=== PATIENT | male | born 1975 ===

== ENCOUNTER 2017-12-04 20:26 | Inpatient (IN) | payer MEDICAID, OTHER ==
[2017-12-04 20:27] VITALS: BMI 24.3
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
[2017-12-04 21:43] LABS: BASO % 0.6 % (0.0-2.0); EOS # 0.2 K/uL (0.0-0.7); EOS % 2.5 % (0.0-4.0); HEMOGLOBIN 12.8 g/dL (12.0-18.0); LYMPH # 2.9 K/uL (1.0-4.3); LYMPH % 35.7 % (20.0-40.0); MEAN CELL VOLUME 85.7 fL (80.0-94.0); MEAN CORPUSCULAR HEMOGLOBIN 29.2 pg (27.0-31.0); MEAN CORPUSCULAR HGB CONC 34.1 g/dL (33.0-37.0); MEAN PLATELET VOLUME 8.3 fL (7.2-11.7); MONO # 0.9 K/uL (0.0-0.8); MONO % 10.6 % (0.0-10.0); NEUT # 4.2 K/uL (1.8-7.0); NEUT % 50.6 % (50.0-75.0); RBC 4.37 Mil/uL (4.40-5.90); RED CELL DISTRIBUTION WIDTH 14.7 % (11.5-14.5); WHITE BLOOD COUNT 8.2 K/uL (4.8-10.8)
[2017-12-04 21:52] LABS: ALB/GLOB RATIO 1.8 (1.0-2.1); ALBUMIN 4.8 g/dL (3.5-5.0); ALT/SGPT 28 U/L (21-72); AST/SGOT 22 U/L (17-59); BLOOD UREA NITROGEN 17 mg/dL (9-20); CALCIUM 9.8 mg/dl (8.6-10.4); GFR AFRICAN-AMERICAN > 60; GFR NON-AFRICAN AMERICAN > 60
[2017-12-04 22:40] LABS: URINE BILIRUBIN NEGATIVE (NEGATIVE); URINE BLOOD NEGATIVE (NEGATIVE); URINE CLARITY Clear (Clear); URINE COLOR Straw (YELLOW); URINE GLUCOSE (UA) NORMAL (Normal); URINE LEUKOCYTE ESTERASE NEG Leu/uL (Negative); URINE PROTEIN NEGATIVE (NEGATIVE); URINE UROBILINOGEN NORMAL mg/dL (0.2-1.0)
[2017-12-04 22:54] LABS: BARBITURATES, UR NEGATIVE (NEGATIVE); BENZODIAZEPINES, UR NEGATIVE (NEGATIVE); OPIATES, UR POSITIVE (NEGATIVE); PHENCYCLIDINE, UR NEGATIVE (NEGATIVE)
--- NOTE | 2017-12-04 23:54 | PCM.BM ---
<Jordan Workman - Last Filed: 12/04/17 23:52> Treatment Plan Problems - Problems identified on initial assessmt ANXIETY Date Initiated: 12/04/17 Time Initiated: 23:40 Assessment reference: NA Status: Active SUBSTANCE ABUSE Date Initiated: 12/04/17 Time Initiated: 23:40 Assessment reference: NA Status: Active Treatment assets and liabiliti Patient Assests: adapts well, self-reliant, ADL independent, negotiates basic needs Patient Liabilities: financial problems, substance abuse, medical problems, legal issue - Milieu Protocol Maintain good personal hygiene: daily Encourage regular showers, daily Remind patient to perform daily oral care, daily Assist patient to perform ADL's Maintain personal safety: every shift Educate patient to report safety concerns to staff, every shift Monitor environment for contraband/sharps Medication safety: Monitor for expected outcome, potential side effects: every shift, Assess barriers to learning: every shift, Assess readiness for medication education: every shift <Tala Borrego - Last Filed: 12/05/17 11:20> Family Contact Family involvement: Family/SO is involved Family contact: Patient declines to allow family contact at present - Goals for Treatment Patient goals for treatment: "I want to go back to my program." Discharge/Continuing Care - Education Needs Education Needs: Patient Medication, Patient Coping Skills - Discharge Discharge Criteria: Tolerates medication w/o severe side effects, Free of Suicidal thoughts, Reduction of target symptoms Discharge to:: Home, With Family - Treatment Team Participation Discussed with Family/SO: No Was Patient/Family/SO present at Treatment Team Meeting: Yes
--- NOTE | 2017-12-05 16:53 | PCM.PSYCH ---
Initial Psychiatric Evaluation - Initial Psychiatric Evaluation Type of Admission: Voluntary Legal Status: Capacity Chief Complaint (in patient's own words): "I wanted to jump in front of traffic and kill myself" History of Present Illness and Precipitating Events: Pt is seen, chart reviewed, and case discussed with staff. This is a 42 y/o male living with his girlfriend and her 12 y/o child. 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 Since then, he has been frustrated by the lack of response from his union worker outside energy sales representatives. He says that he has tried to meet up with this outside energy sales representatives but has been of no help and that he has a sense of hopelessness. After drinking multiple shots of hard liquor yesterday, pt decided to attempt suicide by trying to jump in front of traffic. When he realized he didn't want to go through with it, he decided to come to the hospital for help. Pt states he only drinks socially, but yesterday he decided to drink more than usual because his anxiety was very high. He smokes pack of cigarettes a day; has a history of prior heroin and cocaine use but has been sober for a while now but has relapsed multiple times in the past. He denies any AH, VH, paranoia; denies homicidal ideation; has had suicidal ideations multiple times in the past but never as strong as it was yesterday, and never had a plan any of those times. Psych hx: Depression, anxiety, ADHD, OCD, claustrophobia Medical hx: denies Family psych hx: denies Current Medications: Active Medications Generic Name Dose Route Start Last Admin Trade Name Davidq PRN Reason Stop Dose Admin Escitalopram Oxalate 5 mg 12/05/17 12:45 12/05/17 13:25 Lexapro PO 5 mg DAILY STEFFEN Administration Gabapentin 300 mg 12/05/17 14:00 12/05/17 13:25 Neurontin PO 300 mg TID STEFFEN Administration Hydroxyzine HCl 25 mg 12/05/17 00:09 Atarax PO Q4H PRN Anxiety Ibuprofen 600 mg 12/05/17 00:09 Motrin Tab PO Q6H PRN Pain, moderate (4-7) Mirtazapine 15 mg 12/05/17 22:00 Remeron PO HS STEFFEN Pneumococcal Polyvalent Vaccine 0.5 ml 12/06/17 10:00 Pneumovax 23 Vaccine IM 12/06/17 10:01 .ONCE ONE Trazodone HCl 100 mg 12/05/17 00:09 Desyrel PO HS PRN Insomnia Past Psychiatric History - Past Psychiatric History Previous Treatment History: Inpatient Pertinent Medical Hx (Current Medical&Sleep Prob, Allergies): Allergies Allergy/AdvReac Type Severity Reaction Status Date / Time No Known Allergies Allergy Verified 10/09/17 10:34 No Known Home Med 12/04/17 Review of Systems - Psychiatric Psychiatric: Abnormal Sleep Pattern, Anxiety, Depression, Hopelessness. absent : Confusion, Hallucinations, Homicidal Ideation, Paranoia, Suicidal Ideation ( no plan or urge now), Visual Hallucinations, Tactile Hallucinations Mental Status Examination - Personal Presentation Personal Presentation: Looks stated age - Affect Affect: Constricted - Motor Activity Motor Activity: Calm - Reliability in Providing Information Reliability in Providing Information: Fair - Speech Speech: Organized, Relevant - Mood Mood: Depressed, Anxious - Formal Thought Process Formal Thought Process: No Impairment - Obsessions/Compulsions Obsessions: None Compulsions: None - Cognitive Functions Orientation: Person, Place, Situation, Time Sensorium: Alert Attention/Concentration: Attentive Abstract Thinking: [place] Judgement: Intact, as evidence by: Insight regarding need for hospitalization Memory: Recent intact, as evidence by: Ability to recall events of the day, Remote intact, as evidenced by: Ability to recall historical events - Risk Risk: Diminished functioning - Strength & Assets Inventory Strength & Assets Inventory: Cooperative - Limitations Limitations: Other DSM 5 DX - DSM 5 DSM 5 Diagnosis: Major Depressive Disorder, recurring, 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 Attend groups and activities Individual therapy daily Psychoeducation and support daily Encourage compliance with meds and after care Refer to outpatient program Teach healthy lifestyle methods, i.e. diet, exercise, meditation Smoking cessation and patch if needed 37 min Projected ELOS: 5-6 days
[2017-12-06 06:45] VITALS: RESP 20
[2017-12-06] MEDS ORDERED: Pneumococcal 23-Valent Vaccine IM ONE (10:00)
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
[2017-12-07 06:41] VITALS: BP 116/78; PULSE 61; TEMP 98.7; O2SAT 96
== END 2017-12-07 13:55 | disposition home or self-care (01) | DRG 885 ==
LOC: C.ER 20:26 → C.9E 22:35 → C.5E 23:01
PROVIDERS: ADMIT Psychiatry & Neurology Psychiatry; ATTEND Psychiatry & Neurology Psychiatry
PROC: GZHZZZZ Group Psychotherapy (ICD-10-PCS; principal; 2017-12-04)
PROC: HZ52ZZZ Individual Psychotherapy for Substance Abuse Treatment, Cognitive-Behavioral (ICD-10-PCS; 2017-12-04)
PROC: GZ58ZZZ Individual Psychotherapy, Cognitive-Behavioral (ICD-10-PCS; 2017-12-04)
PROC: GZ56ZZZ Individual Psychotherapy, Supportive (ICD-10-PCS; 2017-12-04)
PROC: HZ59ZZZ Individual Psychotherapy for Substance Abuse Treatment, Supportive (ICD-10-PCS; 2017-12-04)
PROC: HZ56ZZZ Individual Psychotherapy for Substance Abuse Treatment, Psychoeducation (ICD-10-PCS; 2017-12-04)
DX: F33.2 Major depressive disorder, recurrent severe without psychotic features (principal); R45.851 Suicidal ideations; F10.20 Alcohol dependence, uncomplicated; F17.200 Nicotine dependence, unspecified, uncomplicated; F40.240 Claustrophobia; F42.9 Obsessive-compulsive disorder, unspecified; F90.9 Attention-deficit hyperactivity disorder, unspecified type; G47.00 Insomnia, unspecified; F41.1 Generalized anxiety disorder; Y90.0 Blood alcohol level of less than 20 mg/100 ml

== ENCOUNTER 2017-12-15 15:51 | Inpatient (IN) | payer MEDICAID ==
[2017-12-15 15:52] VITALS: BMI 24.3
[2017-12-15 17:13] LABS: BASO % 0.8 % (0.0-2.0); EOS # 0.1 K/uL (0.0-0.7); EOS % 1.2 % (0.0-4.0); HEMOGLOBIN 12.4 g/dL (12.0-18.0); LYMPH # 2.4 K/uL (1.0-4.3); LYMPH % 41.6 % (20.0-40.0); MEAN CELL VOLUME 84.8 fL (80.0-94.0); MEAN CORPUSCULAR HEMOGLOBIN 29.3 pg (27.0-31.0); MEAN CORPUSCULAR HGB CONC 34.5 g/dL (33.0-37.0); MONO # 0.7 K/uL (0.0-0.8); MONO % 11.7 % (0.0-10.0); NEUT # 2.6 K/uL (1.8-7.0); NEUT % 44.7 % (50.0-75.0); RBC 4.24 Mil/uL (4.40-5.90); RED CELL DISTRIBUTION WIDTH 14.5 % (11.5-14.5); WHITE BLOOD COUNT 5.8 K/uL (4.8-10.8)
[2017-12-15 17:16] LABS: SQUAMOUS EPITHIAL < 1 /hpf (0-5); URINE AMORPHOUS SEDIMENT RARE /ul (<OCC); URINE BACTERIA FEW (<OCC); URINE BILIRUBIN NEGATIVE (NEGATIVE); URINE BLOOD NEGATIVE (NEGATIVE); URINE CLARITY Hazy (Clear); URINE COLOR Yellow (YELLOW); URINE GLUCOSE (UA) NORMAL (Normal); URINE LEUKOCYTE ESTERASE NEG Leu/uL (Negative); URINE PROTEIN NEGATIVE (NEGATIVE); URINE UROBILINOGEN NORMAL mg/dL (0.2-1.0)
[2017-12-15 17:27] LABS: BARBITURATES, UR NEGATIVE (NEGATIVE); BENZODIAZEPINES, UR NEGATIVE (NEGATIVE); OPIATES, UR NEGATIVE (NEGATIVE); PHENCYCLIDINE, UR NEGATIVE (NEGATIVE)
[2017-12-15 17:36] LABS: ALB/GLOB RATIO 1.6 (1.0-2.1); ALBUMIN 4.6 g/dL (3.5-5.0); ALT/SGPT 28 U/L (21-72); AST/SGOT 28 U/L (17-59); BLOOD UREA NITROGEN 15 mg/dL (9-20); CALCIUM 9.6 mg/dl (8.6-10.4); GFR NON-AFRICAN AMERICAN > 60
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
--- NOTE | 2017-12-15 19:37 | PCM.BM ---
<Denisa Ross - Last Filed: 12/15/17 19:35> Treatment Plan Problems - Problems identified on initial assessmt Depression Date Initiated: 12/15/17 Time Initiated: 19:35 Assessment reference: NA Status: Active Treatment assets and liabiliti Patient Assests: cooperative, self-reliant, ADL independent, physically healthy , negotiates basic needs, cognitively intact Patient Liabilities: live alone (Lives with girlfriend), financial problems, substance abuse (None) - Milieu Protocol Maintain good personal hygiene: daily Encourage regular showers, daily Remind patient to perform daily oral care, daily Assist patient to perform ADL's (Self) Conduct patient checks and document Observation sheet: Q15 minutes Maintain personal safety: every shift Educate patient to report safety concerns to staff, every shift Monitor environment for contraband/sharps Medication safety: Monitor for expected outcome, potential side effects: every shift, Assess barriers to learning: every shift, Assess readiness for medication education: every shift <Lorrie Schreiber - Last Filed: 12/17/17 11:30> - Diagnosis (1) Depression Status: Acute Interventions: 12/17/17 11:31 * Assess/adjust medications daily and /or as needed * See patient on an individual basis 7x/week to assess symptoms of depression * Monitor for side effects & effectiveness of medications * (2) Drug abuse Status: Acute Interventions: 12/17/17 11:31 * Assess 7x/week regarding severity of withdrawal * Educate regarding risks, benefits, side effects and alternatives of medications * Use Motivational Interviewing for abstinence * Use CBT for relapse prevention * Medication management for withdrawal symptoms * Encourage medication assisted treatment * <Tala Borrego - Last Filed: 12/17/17 14:24> Family Contact Family involvement: Family/SO is involved Family contact: Patient declines to allow family contact at present - Goals for Treatment Patient goals for treatment: "I want to get suboxone treatment." Discharge/Continuing Care - Education Needs Education Needs: Patient Medication, Patient Coping Skills - Discharge Discharge Criteria: Tolerates medication w/o severe side effects, Reduction of target symptoms Discharge to:: Home - Treatment Team Participation Discussed with Family/SO: No Was Patient/Family/SO present at Treatment Team Meeting: Yes
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
--- NOTE | 2017-12-18 00:50 | PCM.PYCHPN ---
Psychiatric Progress Note - Psychiatric Progress Note Patient seen today, length of contact: 15 min Patient Chief Complaint: I was feeling increasingly depressed and suicidal.' Medication Change: Yes Medical Record Reviewed: Yes Mental Status Examination - Cognitive Function Orientation: Person, Place, Situation, Time Memory: Intact Attention: WNL Concentration: Poor Association: WNL Fund of Knowledge: Poor - Mood Mood: Depressed, Anxious - Affect Affect: Constricted, Depressed - Speech Speech: Soft - Formal Thought Process Formal Thought Process: No Impairment - Suicidal Ideation Suicidal Ideation: No - Homicidal Ideation Homicidal Ideation: No Goal/Treatment Plan - Goal/Treatment Plan Need for Continued Stay: Severe depression anxiety, Severe functional impairment Progress Toward Problem(s) and Goals/Treatment Plan: Major depressive disorder recurrent severe without psychotic features CBT Psychoeducation Supportive therapy, group therapy Paxil 10 mg by mouth daily Neurontin 300 mg PO TID Gabapentin for augmentation Trazodone for insomnia Hydroxyzine for anxiety Opiate use disorder severe in early remission CBT Psychoeducation Supportive therapy, individual therapy Use [place] for abstinence Cocaine use disorder severe in early remission CBT Psychoeducation Supportive therapy, individual therapy Use [place] for abstinence - Smoking Cessation Smoking Cessation Initiated: No
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
--- NOTE | 2017-12-18 11:11 | PCM.PYCHPN ---
Psychiatric Progress Note - Psychiatric Progress Note Patient seen today, length of contact: 15 min Patient Chief Complaint: I was feeling increasingly depressed and suicidal.' Medication Change: Yes Medical Record Reviewed: Yes Mental Status Examination - Cognitive Function Orientation: Person, Place, Situation, Time Memory: Intact Attention: WNL Concentration: Poor Association: WNL Fund of Knowledge: Poor - Mood Mood: Depressed, Anxious - Affect Affect: Constricted, Depressed - Speech Speech: Soft - Formal Thought Process Formal Thought Process: No Impairment - Suicidal Ideation Suicidal Ideation: No - Homicidal Ideation Homicidal Ideation: No Goal/Treatment Plan - Goal/Treatment Plan Need for Continued Stay: Severe depression anxiety, Severe functional impairment
[2017-12-19 06:29] VITALS: BP 116/65; PULSE 60; RESP 20; TEMP 97.6
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
[2017-12-19 14:25] VITALS: O2SAT 97
== END 2017-12-19 12:06 | disposition home or self-care (01) | DRG 430 ==
LOC: C.ER 15:51 → C.5E 17:52
PROVIDERS: ADMIT Psychiatry & Neurology Psychiatry; ATTEND Psychiatry & Neurology Psychiatry
PROC: GZHZZZZ Group Psychotherapy (ICD-10-PCS; principal; 2017-12-15)
PROC: GZ56ZZZ Individual Psychotherapy, Supportive (ICD-10-PCS; 2017-12-15)
DX: F33.2 Major depressive disorder, recurrent severe without psychotic features (principal); F11.21 Opioid dependence, in remission; F14.21 Cocaine dependence, in remission; F41.9 Anxiety disorder, unspecified; R45.851 Suicidal ideations